=== PATIENT | female | born 1975 | race Caucasian/White ===

== ENCOUNTER 2019-01-23 05:49 | Day surgery (SDC) | payer OTHER ==
[~2019-01-23] VITALS: Ht 160 cm; Wt 66.5 kg
[2019-01-23] VITALS (18 sets, daily range): BP systolic 86–107; BP diastolic 50–71; PULSE 54–80; RESP 10–22; Ht 160 cm; Wt 66.5 kg
[2019-01-23] MEDS ORDERED: MIDAZOLAM 1 MG/ML 2 ML INJ ONE (07:02)
[2019-01-23] MEDS ORDERED: CEFAZOLIN 1 GM INJ ONE (07:02)
[2019-01-23] MEDS ORDERED: LIDOCAINE 2% (SDV) 5 ML INJ ONE (07:02)
[2019-01-23] MEDS ORDERED: ROCURONIUM 50 MG INJ ONE (07:02)
[2019-01-23] MEDS ORDERED: PROPOFOL 20 ML ONE (07:02)
[2019-01-23] MEDS ORDERED: FENTAnyl 50 MCG/ML VIAL ONE (07:02)
--- NOTE | 2019-01-23 07:09 | PREAC ---
Date/Time of Note Date/Time of Note DATE: 01/23/19 TIME: 07:08 Anesthesia Eval and Record Evaluation Time Pre-Procedure Interview DATE: 01/23/19 TIME: 07:08 Age 43 Sex female NPO: 8 hrs Preoperative diagnosis desire for permanent sterilization Planned procedure laparoscopic tubal fulguration, possible open Past Medical History Past Medical History: None Surgery & Anesthesia Issues No known issue (only had epidural for first ) Meds Anticoagulation: No Beta Terrell within 24 hr: No Reason Beta Terrell not given: Pt. not on B-Terrell No Active Prescriptions or Reported Meds Meds reviewed: Yes (no meds) Allergies Coded Allergies: No Known Allergy (Unverified , 01/23/19) Allergies Reviewed: Yes Labs/Studies Labs Reviewed: Reviewed by anesthesiologist test: Negative Studies: ECG Pre-procedure Exam Last vitals Vital Signs Date Temp Pulse Resp B/P (MAP) Pulse Ox O2 O2 Flow FiO2 Time Delivery Rate 01/23/19 96.5 77 18 98/61 (73) 98 Room Air 06:00 Airway: Adequate mouth opening, Adequate thyromental dist Mallampati: Mallampati II Teeth: Normal Lung: Normal Heart: Normal ASA Physical Status ASA physical status: 1 Emergency: None Planned Anesthetic General/MAC: ETT Planned Pain Management Parenteral pain med, Local by surgeon Pre-operative Attestations Prior to commencing anesthesia and surgery, the patient was re-evaluated, there was verification of: *The patient's identity *The results of appropriate recent lab work and preoperative vital signs *The above evaluation not changing prior to induction *Anesthetic plan, risk benefits, alternative and complications discussed with patient/family; questions answered; patient/family understands, accepts and wishes to proceed. RAYRAY MOFFETT Jan 23, 2019 07:09
[2019-01-23] MEDS ORDERED: BUPIVACAINE 0.5%/EPI (SDV) 30 ML INJ ONE (07:21)
[2019-01-23] MEDS ORDERED: DEXAMETHASONE 4 MG/ML 5 ML INJ ONE (07:55)
[2019-01-23] MEDS ORDERED: ONDANSETRON 4 MG INJ ONE (07:55)
[2019-01-23] MEDS ORDERED: FAMOTIDINE 20 MG INJ ONE (07:55)
[2019-01-23] MEDS ORDERED: METOCLOPRAMIDE 10 MG INJ ONE (07:55)
[2019-01-23] MEDS ORDERED: GLYCOPYRROLATE 0.4 MG INJ ONE (07:59)
[2019-01-23] MEDS ORDERED: NEOSTIGMINE 10 MG INJ ONE (07:59)
[2019-01-23] MEDS ORDERED: ONDANSETRON 4 MG INJ IV PRN (08:00)
[2019-01-23] MEDS ORDERED: MEPERIDINE 25 MG INJ IV PRN (08:00)
[2019-01-23] MEDS ORDERED: OXYCODONE/ACETAMINOPHEN (5/325) TAB PO PRN ×2 (08:00)
[2019-01-23] MEDS ORDERED: FENTAnyl 50 MCG/ML VIAL IV PRN ×3 (08:00)
--- NOTE | 2019-01-23 08:33 | OPR ---
Date/Time of Note Date/Time of Note DATE: 01/23/19 TIME: 08:31 Operative Report Procedure Date: Jan 23, 2019 Preoperative Diagnosis Desires permanent sterilization Postoperative Diagnosis Same Operation/Procedure Performed Laparoscopic bilateral Salpingectomies Surgeon Denia Oliveira MD Throw Out Clerk none Anesthesia Type: general Estimated Blood Loss: minimal Transfusion none Specimen bilateral segments of tubes Grafts/Implants none Tubes/Drains none Complications none Pt Condition Post Procedure: stable Disposition: PACU Procedure Description FINDINGS: Normal tubes, ovaries bilaterally. Normal uterus. CONSENT: Please see my preop H and P consent in the office for the consent process. DESCRIPTION OF PROCEDURE: She was taken to operating room and general anesthesia was induced. She was prepped and draped in the usual sterile fashion in dorsal lithotomy position. Surgical time-out was done. Anterior lip of the cervix was grasped using a single-tooth tenaculum, and a HUMI was inserted in normal fashion. The tenaculum was removed. There was no bleeding from the cervix. The patient already had a Bain catheter as well. Gloves were changed. A 5 mm incision was developed inside the umbilicus. A blunt trocar was inserted in the normal fashion. Intraperitoneal position was confirmed using the laparoscope. Pneumoperitoneum was obtained. The patient was placed in Trendelenburg position. A second trocar was inserted under direct visualization of the laparoscope at the pubic hairline in the midline. Right tube was coagulated and transected 7 cm medial to fimbriated portion of the tube. Right salpingectomy was performed by coagulating and transecting the mesosalpinx while at all times hugging the tube. The tube was removed and sent to pathology. the edges of the mesosalpinx was not bleeding, but for abundance of precaution, I cauterized the edges of the mesosalpinx again. There was no bleeding. Same procedure was done on the contralateral side. All instruments removed under direct visualization of the laparoscope after pneumoperitoneum was released. There was no bleeding. Skin closed using 4-0 Monocryl. Then 10 mL 0.25% Marcaine with epinephrine was injected at the incision sites. HUMI was removed. There was no bleeding from the vagina. Patient tolerated the procedure well. DENIA OLIVEIRA MD Jan 23, 2019 08:33
--- NOTE | 2019-01-23 09:27 | PAC ---
Date/Time of Note Date/Time of Note DATE: 01/23/19 TIME: 09:27 Post-Anesthesia Notes Post-Anesthesia Note Last documented vital signs Vital Signs Date Temp Pulse Resp B/P (MAP) Pulse Ox O2 O2 Flow FiO2 Time Delivery Rate 01/23/19 54 14 91/52 (65) 98 Room Air 09:15 01/23/19 98.5 08:45 Activity: WNL Respiratory function: WNL Cardiovascular function: WNL Mental status: Baseline Pain reasonably controlled: Yes Hydration appropriate: Yes Nausea/Vomiting absent: Yes RAYRAY MOFFETT Jan 23, 2019 09:27
--- NOTE | 2019-01-24 15:34 | RADRPT ---
Vent Rate: 62 bpm RR Interval: 0 msec VA Interval: 152 msec QRS Duration: 74 msec QT Interval: 432 msec QTC Interval: 438 msec P-R-T [place]: 36 - 33 - 34 degrees Normal sinus rhythm Normal ECG Electronically Signed By: Tomasz Garcia
== END 2019-01-23 10:50 | disposition home or self-care (01) ==
LOC: SDS 05:49
PROVIDERS: ATTEND Specialist
DX: Z30.2 Encounter for sterilization (principal)
CPT/HCPCS: 58661; 88302; 93005; J0690; J1100; J2250; J2405; J2710; J2765; J3010; Z7512; Z7610

== ENCOUNTER 2019-01-26 19:10 | Emergency (ER) | payer OTHER ==
[~2019-01-26] VITALS: Wt 67.7 kg
[2019-01-26 19:20] VITALS: BP 110/56; PULSE 66; RESP 18
[2019-01-26] MEDS ORDERED: GLYCERIN (ADULT) SUPP PR ONE (21:30)
[2019-01-26] MEDS ORDERED: MAGNESIUM CITRATE 300 ML BTL PO ONE (21:30)
[2019-01-26] MEDS ORDERED: DOCU-144 PO (23:05)
--- NOTE | 2019-01-26 23:14 | ERD ---
ER Documentation Chief Complaint Chief Complaint COSTIPATION S/P TUBAL LIGATION LAST TUESDAY HPI Patient is a 43-year-old female, status post tubal ligation 3 days ago, presents the ER for constipation. She states she has not had a bowel movement for 3 days. Patient denies taking narcotic pain medication. Patient does report fluctuance. She denies any nausea or vomiting. Patient states she has pain that comes and goes. Patient states she feels as if she needs to have a bowel movement however she is unable to. Patient denies any fevers or chills. Patient denies any dysuria, urgency, urgency or hematuria. Patient denies any diarrhea or rectal bleeding. ROS All systems reviewed and are negative except as per history of present illness. Medications Home Meds Active Scripts Docusate Sodium* (Colace*) 100 Mg Capsule, 100 MG PO TID, #30 CAP Prov:ROXANNA LECHUGA PA-C 01/26/19 Allergies Allergies: Coded Allergies: No Known Allergy (Unverified , 01/23/19) PMhx/Soc Medical and Surgical Hx: pt denies Medical Hx, pt denies Surgical Hx History of Surgery: No Anesthesia Reaction: No Hx Neurological Disorder: No Hx Respiratory Disorders: No Hx Cardiac Disorders: No Hx Psychiatric Problems: No Hx Miscellaneous Medical Probl: No Hx Alcohol Use: No Hx Substance Use: No Hx Tobacco Use: No Smoking Status: Never smoker FmHx Family History: No diabetes Physical Exam Vitals Vital Signs Date Temp Pulse Resp B/P (MAP) Pulse Ox O2 O2 Flow FiO2 Time Delivery Rate 01/26/19 98.4 66 18 110/56 98 19:20 (74) Physical Exam GENERAL: Well-developed, well-nourished female. Appears in no acute distress. HEAD: Normocephalic, atraumatic. EYES: Pupils are equally reactive bilaterally. EOMs grossly intact. No conjunctival erythema. ENT: Moist mucous membranes. No uvula deviation. No kissing tonsils. NECK: Supple. No meningismus. Normal range of motion of the neck. LUNG: Clear to auscultation bilaterally. No rhonchi, wheezing, rales or coarse breath sounds. HEART: Regular rate and rhythm. No murmurs, rubs or gallops. ABDOMEN: Surgical scars noted above the suprapubic region and in the umbilicus- healing well. No wound dehiscence. No active bleeding or drainage.. Soft and nondistended. Minimally tender to palpation in all 4 quadrants. No rebound tenderness, no guarding. (-) McBurney's point tenderness. No CVA tenderness. EXTREMITIES: Equal pulses bilaterally. No peripheral clubbing, cyanosis or edema. No unilateral leg swelling. NEUROLOGIC: Alert and oriented. Moving all four extremities without any difficulty. Normal speech. Steady gait. SKIN: Normal color. Warm and dry. No rashes or lesions. Results 24 hrs Current Medications Medications Dose Sig/Librado Start Time Status Last (Trade) Ordered Route PRN Stop Time Admin Dose Reason Admin Glycerin 1 supp ONCE ONCE 01/26/19 DC 01/26/19 (Glycerin TX 21:30 21:24 (Adult)) 01/26/19 21:31 Magnesium 150 ml ONCE ONCE 01/26/19 DC 01/26/19 Citrate PO 21:30 21:24 (Citroma) 01/26/19 21:31 Procedures/MDM ED COURSE: The patient was stable throughout ED course. I kept the patient and/or family informed of laboratory and diagnostic imaging results throughout the ED course. DIAGNOSTIC IMAGING: Read by radiologist. Radiology Main Line: [phone] DIAGNOSTIC IMAGING REPORT Patient: CRISTIAN MARTIN : 1975 Age: 43 Sex: F MR #: [id number] DOS: 01/26/192115 Ordering MD: ROXANNA LECHUGA PA-C Location: [facility] Room/Bed: PROCEDURE: XR Abdomen, 1 View CLINICAL INDICATION: Constipation. TECHNIQUE: Frontal supine view of the abdomen/pelvis. COMPARISON: None FINDINGS: GASTROINTESTINAL TRACT: Nonobstructive intestinal gas pattern. Mild retained stool in the colon. The volume of visualized stool does not appear excessive. BONES/JOINTS: Unremarkable. IMPRESSION: Unremarkable AP view of the abdomen. RPTAT: [facility] Dario Lopez Physician Casino Duty Manager Date Time Electronically viewed and signed by Dario Lopez Physician Casino Duty Manager on 01/26/2019 22:55 [facility] [place] CC: ROXANNA LECHUGA PA-C [phone] PROCEDURES: None. MEDICATIONS GIVEN: Magnesium citrate, glycerin suppository Patient tolerated medication well with no adverse reactions. Patient reported improvement in pain. She did have 2 bowel movements while here in the ER. MEDICAL DECISION MAKING: This is a 43-year-old female presents the ER for concerns of constipation times 3 days after tubal ligation. Patient denies taking any narcotic pain medication. Vital signs were reviewed. Patient is afebrile. Patient was not hypoxic. On exam, patient did have mild tenderness to palpation in all 4 quadrants. Patient had no rebound or guarding. Patient had no peritoneal signs. KUB was obtained and showed nonobstructive intestinal gas pattern. Mild retained stool noted in the colon. Patient was given a glycerin suppository as well as half a bottle of magnesium citrate. Patient had 2 bowel movements here in the ER and did report significant improvement in symptoms. At this time, patient's presentation is most consistent with improved constipation. Low suspicion for bowel obstruction, bowel perforation, acute coronary syndrome, AAA, mesenteric ischemia, lower lobe pneumonia, DKA, cho lecystitis, choledocholithiasis, diverticulitis, UTI, ectopic , ovarian torsion or tubo-ovarian abscess. Low suspicion for sepsis. Patient was nontoxic, [id number] prior to discharge. Case is discussed with supervising physician Dr. Resendiz agreed with workup and management. PRESCRIPTIONS: Colace DISCHARGE: At this time, patient is stable for discharge and outpatient management. I have instructed the patient to follow-up with his/her primary care physician in 1-2 days. I have instructed the patient to promptly return to the ER at any time for any new or worsening symptoms including increased pain, nausea, vomiting, diarrhea, fever, weakness or LOC. The patient and/or family expressed understanding of and agreement with this plan. All questions were answered. Home care instructions were provided. Disclaimer: Inadvertent spelling and grammatical errors are likely due to EHR/dictation software use and do not reflect on the overall quality of patient care. Also, please note that the electronic time recorded on this note does not necessarily reflect the actual time of the patient encounter. Departure Diagnosis: Primary Impression: Constipation Constipation type: unspecified constipation type Qualified Codes: K59.00 - Constipation, unspecified Condition: Fair Patient Instructions: Constipation (Adult) Referrals: COMM[facility]ITY CLINICS YOU HAVE RECEIVED A MEDICAL SCREENING EXAM AND THE RESULTS INDICATE THAT YOU DO NOT HAVE A CONDITION THAT REQUIRES URGENT TREATMENT IN THE EMERGENCY DEPARTMENT. FURTHER EVALUATION AND TREATMENT OF YOUR CONDITION CAN WAIT UNTIL YOU ARE SEEN IN YOUR DOCTORS OFFICE WITHIN THE NEXT 1-2 DAYS. IT IS YOUR RESPONSIBILITY TO MAKE AN APPOINTMENT FOR FOLOW-UP CARE. IF YOU HAVE A PRIMARY DOCTOR --you should call your primary doctor and schedule an appointment IF YOU DO NOT HAVE A PRIMARY DOCTOR YOU CAN CALL OUR PHYSICIAN REFERRAL HOTLINE AT IF YOU CAN NOT AFFORD TO SEE A PHYSICIAN YOU CAN CHOSE FROM THE FOLLOWING [facility] [address] [facility] [address] [facility] [facility] [address] [facility] [address] [facility] [address] [facility]. [facility] [address] [facility] [facility] [address] [facility] YOU HAVE RECEIVED A MEDICAL SCREENING EXAM AND THE RESULTS INDICATE THAT YOU DO NOT HAVE A CONDITION THAT REQUIRES URGENT TREATMENT IN THE EMERGENCY DEPARTMENT. FURTHER EVALUATION AND TREATMENT OF YOUR CONDITION CAN WAIT UNTIL YOU ARE SEEN IN YOUR DOCTORS OFFICE WITHIN THE NEXT 1-2 DAYS. IT IS YOUR RESPONSIBILITY TO MAKE AN APPOINTMENT FOR FOLOW-UP CARE. IF YOU HAVE A PRIMARY DOCTOR --you should call your primary doctor and schedule and appointment IF YOU DO NOT HAVE A PRIMARY DOCTOR YOU CAN CALL OUR PHYSICIAN REFERRAL HOTLINE AT . IF YOU CAN NOT AFFORD TO SEE A PHYSICIAN YOU CAN CHOSE FROM THE FOLLOWING [facility] INSTITUTIONS: [facility] [address] [place] [address] [facility] [address] [place] [address] [facility] [address] [place] [address] Additional Instructions: Call your primary care doctor TOMORROW for an appointment during the next 1-2 days.See the doctor sooner or return here if your condition worsens before your appointment time. ROXANNA LECHUGA PA-C Jan 26, 2019 23:14
== END 2019-01-26 23:58 | disposition home or self-care (01) ==
LOC: FTE 19:10
DX: K59.00 Constipation, unspecified (principal)
CPT/HCPCS: 74018; Z7502; Z7610